=== PATIENT | male | born 1990 | race Caucasian/White ===

== ENCOUNTER 2017-09-04 04:47 | Emergency (ER) | payer OTHER, SELFPAY ==
[2017-09-04 04:52] VITALS: BP 128/82; PULSE 91; RESP 16; TEMP 36.6; O2SAT 99; BMI 23.5
--- NOTE | 2017-09-04 05:04 | HMH.EDBACK ---
ED Disposition Clinical Impression: Thoracic back pain Qualifiers: Chronicity: acute Back pain laterality: left Qualified Code(s): M54.6 - Pain in thoracic spine Disposition: Home, Self-Care Condition on Discharge: Good Instructions: DI for Thoracic Back Pain Additional Instructions: see pcp for follow up and keep appt with [place] Prescriptions: Cyclobenzaprine HCl [Flexeril 10mg tablet] 10 mg PO BID #20 tab Referrals: Provider,Referral, [Referring] - - Critical Care Critical Care Time: No Attestation: On 09/04/17, the high probability of a clinically significant, sudden or life threatening deterioration of the following system(s) required my full and direct attention, intervention and personal management. The time I documented below is in addition to time spent performing reported procedures but includes the following listed in this critical care notation. Medical Decision Making - Medical Records Medical records reviewed: Yes: I reviewed the patient's medical records. Vital Signs: 09/04/17 04:52 Temperature 98 F Temperature Source Oral Pulse Rate [Brachial] 91 H Respiratory Rate 16 Blood Pressure [Right Arm] 128/82 Blood Pressure Mean [Right Arm] 97 Blood Pressure Source [Right Arm] Automatic Cuff Blood Pressure Position [Right Arm] Sitting 02 Sat by Pulse Oximetry 99 Oxygen Delivery Method Room Air - Lab Data Lab results reviewed: Yes: I reviewed the patient's lab results. Lab Results 09/04/17 05:35: WBC 14.6 H, RBC 4.45 L, Hgb 14.8, Hct 42.9, MCV 96.5 H, MCH 33.2 H, MCHC 34.4, RDW 12.5, Plt Count 261, MPV 7.3 L, Neut % (Auto) 72.6, Lymph % (Auto) 17.5, [place] % (Auto) 9.1, Eos % (Auto) 0.5, Baso % (Auto) 0.2, Neut # (Auto) 10.6 H, Lymph # (Auto) 2.6, [place] # (Auto) 1.3 H, Eos # (Auto) 0.1, Baso # (Auto) 0.0 09/04/17 05:35: Sodium 134 L, Potassium 3.9, Chloride 99, Carbon Dioxide 32, Anion Gap 6.9, BUN 14, Creatinine 1.06, Estimated Creat Clear 103, Estimated GFR 85, Est GFR ( Amer) 103, Glucose 98, Calcium 9.1, Total Bilirubin 1.5 H, AST 24, ALT 25, Alkaline Phosphatase 114, Total Protein 6.7, Albumin 3.7, Globulin 3.0, Albumin/Globulin Ratio 1.2 09/04/17 05:37: Urine Color Yellow, Urine Appearance Clear, Urine pH 6.5, Ur Specific [place] 1.020, Urine Protein Negative, Urine Glucose (UA) Negative, Urine Ketones Trace, Urine Blood Negative, Urine Nitrate Negative, Urine Bilirubin Negative, Urine Urobilinogen 0.2, Ur Leukocyte Esterase Negative, Urine WBC 3-5, Urine Bacteria 1+, Urine Mucus 1+ Result diagrams: 09/04/17 05:35 09/04/17 05:35 Orders (Tests/Meds): ED MEDICATIONS Discontinued Medications Generic Name Dose Route Start Last Admin Trade Name Freq PRN Reason Stop Dose Admin Lactated Ringer's 1,000 mls @ 999 mls/hr 09/04/17 05:30 09/04/17 05:39 Lactated Ringer's 1000 Ml Bag IV 09/04/17 06:30 999 mls/hr .Q1H1M SANTOSH Administration ORDERS Category Date Time Status CXR 2 view (NOT portable) [XR chest 2V] Stat Exams 09/04/17 05:44 Taken Thoracic spine XR (swimmers) 3 view [XR thoracic spine Exams 09/04/17 05:45 Taken 3V] Stat Lipase Stat Lab 09/04/17 05:35 Received - Radiology Data #1 Image(s): Chest, T-Spine Image Reviewed: Yes I reviewed the patient's radiology image Preliminary Findings: No Fracture Seen (old scapula fx ) - Teddy Inquiry Pt receiving controlled substance: No H History I have reviewed the patient's past medical history: Yes - *Social History Alcohol Intake: never Substance Use Type: marijuana - Psychiatric History Expresses thoughts of harming self/others: None Suicide Plan Description: No Plan ROS Obtained: Yes All systems reviewed & no additional complaints - Constitutional Constitutional: Denies fever(s) - Eyes Eyes: Denies change in vision - ENT Ears, Nose, Mouth, and Throat: Denies sore throat - Cardiovascular Cardiovascular: Denies chest pain at rest - Respiratory Respiratory: No c
--- NOTE | 2017-09-04 05:12 | ED_ITS ---
ED Disposition Clinical Impression: Thoracic back pain Qualifiers: Chronicity: acute Back pain laterality: left Qualified Code(s): M54.6 - Pain in thoracic spine Disposition: Home, Self-Care Condition on Discharge: Good Instructions: DI for Thoracic Back Pain Additional Instructions: see pcp for follow up and keep appt with [place] Prescriptions: Cyclobenzaprine HCl [Flexeril 10mg tablet] 10 mg PO BID #20 tab Referrals: Provider,Referral, [Referring] - - Critical Care Critical Care Time: No Attestation: On 09/04/17, the high probability of a clinically significant, sudden or life threatening deterioration of the following system(s) required my full and direct attention, intervention and personal management. The time I documented below is in addition to time spent performing reported procedures but includes the following listed in this critical care notation. Medical Decision Making - Medical Records Medical records reviewed: Yes: I reviewed the patient's medical records. Vital Signs: 09/04/17 04:52 Temperature 98 F Temperature Source Oral Pulse Rate [Brachial] 91 H Respiratory Rate 16 Blood Pressure [Right Arm] 128/82 Blood Pressure Mean [Right Arm] 97 Blood Pressure Source [Right Arm] Automatic Cuff Blood Pressure Position [Right Arm] Sitting 02 Sat by Pulse Oximetry 99 Oxygen Delivery Method Room Air - Lab Data Lab results reviewed: Yes: I reviewed the patient's lab results. Lab Results 09/04/17 05:35: WBC 14.6 H, RBC 4.45 L, Hgb 14.8, Hct 42.9, MCV 96.5 H, MCH 33.2 H, MCHC 34.4, RDW 12.5, Plt Count 261, MPV 7.3 L, Neut % (Auto) 72.6, Lymph % (Auto) 17.5, [place] % (Auto) 9.1, Eos % (Auto) 0.5, Baso % (Auto) 0.2, Neut # (Auto) 10.6 H, Lymph # (Auto) 2.6, [place] # (Auto) 1.3 H, Eos # (Auto) 0.1 , Baso # (Auto) 0.0 09/04/17 05:35: Sodium 134 L, Potassium 3.9, Chloride 99, Carbon Dioxide 32, Anion Gap 6.9, BUN 14, Creatinine 1.06, Estimated Creat Clear 103, Estimated GFR 85, Est GFR ( Amer) 103, Glucose 98, Calcium 9.1, Total Bilirubin 1.5 H, AST 24, ALT 25, Alkaline Phosphatase 114, Total Protein 6.7, Albumin 3.7 , Globulin 3.0, Albumin/Globulin Ratio 1.2 09/04/17 05:37: Urine Color Yellow, Urine Appearance Clear, Urine pH 6.5, Ur Specific [place] 1.020, Urine Protein Negative, Urine Glucose (UA) Negative, Urine Ketones Trace, Urine Blood Negative, Urine Nitrate Negative, Urine Bilirubin Negative, Urine Urobilinogen 0.2, Ur Leukocyte Esterase Negative, Urine WBC 3-5, Urine Bacteria 1+, Urine Mucus 1+ Result diagrams: 09/04/17 05:35 09/04/17 05:35 Orders (Tests/Meds): ED MEDICATIONS Discontinued Medications Generic Name Dose Route Start Last Admin Trade Name Freq PRN Reason Stop Dose Admin Lactated Ringer's 1,000 mls @ 999 mls/hr 09/04/17 05:30 09/04/17 05:39 Lactated Ringer's 1000 Ml Bag IV 09/04/17 06:30 999 mls/hr .Q1H1M SANTOSH Administration ORDERS Category Date Time Status CXR 2 view (NOT portable) [XR chest 2V] Stat Exams 09/04/17 05:44 Taken Thoracic spine XR (swimmers) 3 view [XR thoracic spine Exams 09/04/17 05:45 Taken 3V] Stat Lipase Stat Lab 09/04/17 05:35 Received - Radiology Data #1 Image(s): Chest, T-Spine Image Reviewed: Yes I reviewed the patient's radiology image Preliminary Findings: No Fracture Seen (old scapula fx ) - Teddy Inquiry
[2017-09-04 05:44] LABS: Microscopic, Urine URINE MICROSCOPIC (MICROSCOPIC)
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
[2017-09-04 05:49] LABS: Basophils % 0.2 % (0.1-2.0); Eosinophils # 0.1 K/mm3 (0.0-0.4); Eosinophils % 0.5 % (0.1-12.0); Hematocrit 42.9 % (42.0-52.0); Hemoglobin 14.8 g/dL (14.1-18.0); Lymphocytes # 2.6 K/mm3 (0.7-4.5); Lymphocytes % 17.5 K/mm3 (10-50); Mean Corpuscular HGB Conc 34.4 g/dL (31.8-35.4); Mean Corpuscular Hemoglobin 33.2 pg (27.0-31.2); Mean Corpuscular Volume 96.5 fl (80-94); Mean Platelet Volume 7.3 fl (7.4-10.4); Monocytes # 1.3 K/mm3 (0.1-1.0); Monocytes % 9.1 % (1.7-9.3); Neutrophils # 10.6 K/mm3 (1.8-7.8); Neutrophils % 72.6 % (37.0-80.0); Platelet Count 261 K/mm3 (142-424); Red Blood Count 4.45 M/mm3 (4.60-6.20); Red Cell Distribution Width 12.5 % (11.5-17.5); White Blood Count 14.6 K/mm3 (4.8-10.8)
[2017-09-04 05:51] LABS: Appearance,Urine CLEAR (Clear); Bilirubin,Urine Negative (Negative); Blood, Urine Negative (Negative); Color,Urine YELLOW (Yellow); Glucose,Urine (UA) Negative (Negative); Ketones,Urine TRACE (Negative); Leukocyte Esterase,Urine Negative (Negative); Nitrate,Urine Negative (Negative); PH,Urine 6.5 (5.0-8.5); Protein,Urine Negative (Negative); Urobilinogen,Urine 0.2 EU/dl (0.2)
[2017-09-04 05:57] LABS: Alanine Aminotransferase 25 U/L (12-78); Albumin Level 3.7 gm/dL (3.4-5.0); Albumin/Globulin Ratio 1.2 (1.1-1.8); Alkaline Phosphatase 114 U/L (46-116); Anion Gap 6.9 mEq/L (5-15); Aspartate Amino Transferase 24 U/L (15-37); Bilirubin,Total 1.5 mg/dL (0.2-1.0); Blood Urea Nitrogen 14 mg/dL (7-18); Calcium 9.1 mg/dL (8.5-10.1); Carbon Dioxide 32 mmol/L (21.0-32.0); Chloride 99 mmol/L (98-107); Creatinine Clearance Estimated 103 mL/min (0-300); Creatinine,Serum 1.06 mg/dL (0.70-1.30); Estimated Glomerular Filt Rate 85 ml/min (>60); GFR (African American) 103 ML/MIN (>60); Glucose 98 mg/dL (74-106); Potassium 3.9 mmoL/L (3.5-5.1); Sodium 134 mmol/L (136-145); Total Protein,Serum 6.7 gm/dL (6.4-8.2)
[2017-09-04 06:00] LABS: Bacteria,Urine 1+ /lpf; Mucus,Urine 1+ /lpf
[2017-09-04 06:34] LABS: Lipase 45 u/L (73-393)
== END 2017-09-04 06:51 | disposition home or self-care (01) ==
PROVIDERS: Emergency Provider Emergency Medicine; Family Provider Physician Assistant; PCP Physician Assistant
DX: M54.6 Pain in thoracic spine (principal)
CPT/HCPCS: 71046; 72072; 80053; 81001; 83690; 85025; 96360; 96365; 96375; 99283